=== PATIENT | female | born 1995 | race American Indian/Alaskan Native ===

== ENCOUNTER 2017-10-12 21:58 | Emergency (ER) | payer OTHER ==
[2017-10-12 22:44] VITALS: BP 113/63
[2017-10-12 23:39] LABS: Basophils % (Auto) 0.5 % (0.0-1.8); Eosinophils % (Auto) 0.6 % (0.0-4.3); Hematocrit 33.2 % (30.3-42.9); Hemoglobin 11.4 gm/dl (10.1-14.3); Mean Corpuscular HGB Conc 34 % (30-34); Mean Corpuscular Hemoglobin 31 pg (28-32); Mean Corpuscular Volume 89 fl (79-97); Platelet Count 157 K/mm3 (140-440); Red Blood Count 3.72 M/mm3 (3.65-5.03); Red Cell Distribution Width 13.7 % (13.2-15.2); White Blood Count 4.9 K/mm3 (4.5-11.0)
[2017-10-12 23:43] LABS: Alanine Aminotransferase 17 units/L (7-56); Albumin 3.9 g/dL (3.9-5); Albumin/Globulin Ratio 1.4 %; Alkaline Phosphatase 47 units/L (35-129); BUN/Creatinine Ratio 22; Blood Urea Nitrogen 11 mg/dL (7-17); Carbon Dioxide 23 mmol/L (22-30); Glucose 79 mg/dL (65-100); Lipase 32 units/L (13-60); Total Protein 6.6 g/dL (6.3-8.2)
[2017-10-12 23:44] LABS: Anion Gap 17 mmol/L; Chloride 97.2 mmol/L (98-107); Potassium 3.5 mmol/L (3.6-5.0); Sodium 134 mmol/L (137-145)
[2017-10-13 00:41] LABS: Bilirubin,Urine NEG (Negative); Blood,Urine NEG (Negative); Ketones,Urine NEG (Negative); Leukocyte Esterase,Urine NEG (Negative); Mucus,Urine 3+ /HPF; Nitrite,Urine NEG (Negative); Protein,Urine <15 mg/dL mg/dL (Negative)
== END 2017-10-13 01:40 | disposition left against medical advice (07) ==
LOC: ED 21:58
DX: R10.9 Unspecified abdominal pain (principal); Z53.21 Procedure and treatment not carried out due to patient leaving prior to being seen by health care provider
CPT/HCPCS: 36415; 80053; 81001; 83690; 84702; 84703; 85025

== ENCOUNTER 2017-10-15 15:35 | Emergency (ER) | payer SELFPAY ==
[2017-10-15] MEDS ORDERED: DUONEB *Not for PRN Use IH ONE (20:19)
[2017-10-15] MEDS ORDERED: TYLENOL PO ONE (20:19)
--- NOTE | 2017-10-15 20:20 | Emergency Department Report ---
- General Chief Complaint: Upper Respiratory Infection Stated Complaint: ADITI Time Seen by Provider: 10/15/17 20:08 Source: patient Mode of arrival: Ambulatory Limitations: No Limitations - History of Present Illness Initial Comments: 22-year-old female past medical history none presents to the ED requesting a test. Patient also states she has had runny nose dry cough for the last 3-4 days. Nonproductive cough. Denies fevers or chills. States she has had multiple sick contacts at home. States she has slightly sore throat. Speaking in full sentences awake alert and oriented 3 not in acute distress. Patient states that her last menstrual period was over 1 month ago. Denies abdominal pain vaginal bleeding fevers or chills. States she has not taken any medicine for her symptoms. MD Complaint: cough, rhinorrhea, nasal congestion Onset/Timin -: days(s) Severity: mild Context: sick contacts Associated Symptoms: rhinorrhea, nasal congestion, sore throat, cough - Related Data Previous Rx's Medication Instructions Recorded Last Taken Type ALBUTEROL Inhaler [ProAir HFA 2 puff IH QID PRN #1 inh 10/15/17 Unknown Rx Inhaler] Acetaminophen [Acetaminophen TAB] 500 mg PO Q6HR PRN #30 tablet 10/15/17 Unknown Rx Dextromethorphan/Benzocaine 1 each PO Q4H PRN #1 box 10/15/17 Unknown Rx [Cepacol Sorethroat-Cough Mishel] Nitrofurantoin Monohyd/M-Cryst 100 mg PO BID #14 capsule 10/15/17 Unknown Rx [Macrobid 100 mg Capsule] 21/Iron Fu/Folic Acid 1 each PO QDAY #30 tablet 10/15/17 Unknown Rx [ Complete Caplet] diphenhydrAMINE [Benadryl CAP] 25 mg PO Q8HR PRN #30 capsule 10/15/17 Unknown Rx guaiFENesin [Guaifenesin] 100 mg PO Q6H PRN #1 bottle 10/15/17 Unknown Rx Allergies Allergy/AdvReac Type Severity Reaction Status Date / Time No Known Allergies Allergy Unverified 10/12/17 22:37 ED Review of Systems ROS: Stated complaint: ADITI Other details as noted in HPI Constitutional: malaise. denies: chills, fever Eyes: denies: eye pain, eye discharge, vision change ENT: throat pain. denies: ear pain Respiratory: cough. denies: shortness of breath, wheezing Cardiovascular: denies: chest pain, palpitations Endocrine: no symptoms reported Gastrointestinal: denies: abdominal pain, nausea, diarrhea Genitourinary: denies: urgency, dysuria, discharge Musculoskeletal: denies: back pain, joint swelling, arthralgia Skin: denies: rash, lesions Neurological: denies: headache, weakness, paresthesias Psychiatric: denies: anxiety, depression Hematological/Lymphatic: denies: easy bleeding, easy bruising ED Past Medical Hx - Past Medical History Previous Medical History?: No - Surgical History Past Surgical History?: No - Social History Smoking Status: Never Smoker Substance Use Type: None - Medications Home Medications: Home Medications Medication Instructions Recorded Confirmed Last Taken Type ALBUTEROL Inhaler [ProAir HFA 2 puff IH QID PRN #1 inh 10/15/17 Unknown Rx Inhaler] Acetaminophen [Acetaminophen TAB] 500 mg PO Q6HR PRN #30 tablet 10/15/17 Unknown Rx Dextromethorphan/Benzocaine 1 each PO Q4H PRN #1 box 10/15/17 Unknown Rx [Cepacol Sorethroat-Cough Mishel] Nitrofurantoin Monohyd/M-Cryst 100 mg PO BID #14 capsule 10/15/17 Unknown Rx [Macrobid 100 mg Capsule] 21/Iron Fu/Folic Acid 1 each PO QDAY #30 tablet 10/15/17 Unknown Rx [ Complete Caplet] diphenhydrAMINE [Benadryl CAP] 25 mg PO Q8HR PRN #30 capsule 10/15/17 Unknown Rx guaiFENesin [Guaifenesin] 100 mg PO Q6H PRN #1 bottle 10/15/17 Unknown Rx ED Physical Exam - General Limitations: No Limitations General appearance: alert, in no apparent distress - Head Head exam: Present: atraumatic, normocephalic - Eye Eye exam: Present: normal appearance, PERRL, EOMI - ENT ENT exam: Present: mucous membranes moist - Expanded ENT Exam Expanded Throat exam: Positive: tonsillar erythema (slight erythema but no exudates no peritonsillar abscess uvula is midline) - Neck Neck exam: Present: normal inspection, lymphadenopathy (no significant anterior cervical adenopathy) - Respiratory Respiratory exam: Present: normal lung sounds bilaterally. Absent: respiratory distress - Cardiovascular Cardiovascular Exam: Present: regular rate, normal rhythm. Absent: systolic murmur, diastolic murmur, rubs, gallop - GI/Abdominal GI/Abdominal exam: Present: soft (abdomen soft nontender nondistended four quadrants), normal bowel sounds - Extremities Exam Extremities exam: Present: normal inspection - Back Exam Back exam: Present: normal inspection - Neurological Exam Neurological exam: Present: alert, oriented X3 - Psychiatric Psychiatric exam: Present: normal affect, normal mood - Skin Skin exam: Present: warm, dry, intact, normal color. Absent: rash ED Course Vital Signs 10/15/17 10/15/17 15:44 21:50 Temperature 98.7 F 98.7 F Pulse Rate 75 79 Respiratory 18 18 Rate Blood Pressure 126/83 Blood Pressure 119/69 [Right] O2 Sat by Pulse 99 97 Oximetry ED Medical Decision Making - Medical Decision Making A/P: URI, , asymptomatic bacteriuria 1-we'll treat patient empirically with Macrobid 2-I referred patient to primary care and [facility] as she does not currently have care at this time. Will start patient on vitamins. Patient reports no abdominal pain no vaginal bleeding. Denies any abdominal cramping. 3-will treat patient for URI symptomatically Critical care attestation.: If time is entered above; I have spent that time in minutes in the direct care of this critically ill patient, excluding procedure time. ED Disposition Clinical Impression: Qualifiers: Weeks of gestation: unspecified Qualified Code(s): Z34.90 - Encounter for supervision of normal , unspecified, unspecified trimester Upper respiratory infection Qualifiers: URI type: unspecified URI Qualified Code(s): J06.9 - Acute upper respiratory infection, unspecified Disposition: DC-01 TO HOME OR SELFCARE Is pt being admited?: No Does the pt Need Aspirin: No Condition: Stable Instructions: (ED), Upper Respiratory Infection (ED), Cold Symptoms ( ED) Prescriptions: Acetaminophen [Acetaminophen TAB] 500 mg PO Q6HR PRN #30 tablet PRN Reason: Congestion ALBUTEROL Inhaler [ProAir HFA Inhaler] 2 puff IH QID PRN #1 inh PRN Reason: Shortness Of Breath Dextromethorphan/Benzocaine [Cepacol Sorethroat-Cough Mishel] 1 each PO Q4H PRN #1 box PRN Reason: Sore Throat diphenhydrAMINE [Benadryl CAP] 25 mg PO Q8HR PRN #30 capsule PRN Reason: Congestion guaiFENesin [Guaifenesin] 100 mg PO Q6H PRN #1 bottle PRN Reason: Cough Nitrofurantoin Monohyd/M-Cryst [Macrobid 100 mg Capsule] 100 mg PO BID #14 capsule 21/Iron Fu/Folic Acid [ Complete Caplet] 1 each PO QDAY #30 tablet Referrals: [facility] [Outside] - 3-5 Days [facility] [Outside] - 3-5 Days [facility] [Provider Group] - 3-5 Days [facility] [Provider Group] - 3-5 Days GUILHERME ALVAREZ MD [Staff Physician] - 3-5 Days [facility] [Provider Group] - 3-5 Days Forms: Accompanied Note, Work/School Release Form(ED) Time of Disposition: 21:37
[2017-10-15 21:01] LABS: Bacteria,Urine 1+ /HPF (Negative); Bilirubin,Urine NEG (Negative); Blood,Urine NEG (Negative); Ketones,Urine 80 mg/dL (Negative); Leukocyte Esterase,Urine LG (Negative); Mucus,Urine 1+ /HPF; Nitrite,Urine NEG (Negative); Protein,Urine <15 mg/dL mg/dL (Negative); Urobilinogen,Urine < 2.0 mg/dL (<2.0)
[2017-10-16 00:46] VITALS: BP 119/69
== END 2017-10-15 21:55 | disposition home or self-care (01) ==
LOC: ED 15:35
DX: O99.519 Diseases of the respiratory system complicating pregnancy, unspecified trimester (principal); J06.9 Acute upper respiratory infection, unspecified; Z3A.00 Weeks of gestation of pregnancy not specified
CPT/HCPCS: 81001; 81025; 87400

== ENCOUNTER 2018-04-23 05:28 | Outpatient (CLI) | payer OTHER ==
[2018-04-23 05:44] VITALS: BP 128/70
== END 2018-04-23 07:10 | disposition home or self-care (01) ==
LOC: TRG 05:28
PROVIDERS: ATTEND Obstetrics & Gynecology
DX: O62.9 Abnormality of forces of labor, unspecified (principal); Z3A.37 37 weeks gestation of pregnancy

== ENCOUNTER 2018-05-10 23:54 | Emergency (ER) | payer OTHER ==
[2018-05-11] MEDS ORDERED: NACL 0.9% 1000 ML 1,000 ML IV ONE (00:06)
[2018-05-11 00:52] LABS: Basophils % (Auto) 0.2 % (0.0-1.8); Eosinophils # (Auto) 0.1 K/mm3 (0.0-0.4); Eosinophils % (Auto) 0.6 % (0.0-4.3); Hemoglobin 11.8 gm/dl (10.1-14.3); Lymphocytes % (Auto) 11.1 % (13.4-35.0); Mean Corpuscular HGB Conc 34 % (30-34); Mean Corpuscular Hemoglobin 31 pg (28-32); Mean Corpuscular Volume 91 fl (79-97); Monocytes # (Auto) 0.5 K/mm3 (0.0-0.8); Monocytes % (Auto) 6.3 % (0.0-7.3); Platelet Count 187 K/mm3 (140-440); Red Blood Count 3.83 M/mm3 (3.65-5.03); Red Cell Distribution Width 15.5 % (13.2-15.2)
[2018-05-11 01:07] LABS: Alanine Aminotransferase 27 units/L (7-56); Albumin 3.3 g/dL (3.9-5); BUN/Creatinine Ratio 17; Blood Urea Nitrogen 10 mg/dL (7-17); Calcium 8.5 mg/dL (8.4-10.2); Hemolysis Index 3; Lipase 25 units/L (13-60)
[2018-05-11] MEDS ORDERED: VANCOMYCIN 1,500 MG in NACL 0.9% 500 ML 500 ML IV ONE (01:29)
[2018-05-11] MEDS ORDERED: NACL 0.9% 1000 ML IV ONE (01:29)
[2018-05-11] MEDS ORDERED: DILAUDID IV PRN (01:29)
[2018-05-11] MEDS ORDERED: TYLENOL PO PRN (01:29)
--- NOTE | 2018-05-11 01:40 | Emergency Department Report ---
ED Abdominal Pain HPI - General Chief Complaint: Abdominal Pain Stated Complaint: ABDOMINAL PAIN,SOB Time Seen by Provider: 05/11/18 01:16 Source: patient Mode of arrival: Ambulatory Limitations: No Limitations - History of Present Illness Initial Comments: 23-year-old woman, status post section at term 3 days ago, uncomplicated, discharged 10-12 hours ago, returns now with increasing abdominal pain, as well as fever and some chills. She had some unknown prescriptions, which she had not been able to fill yet today, and that would include pain medicine, but she has not had any since her discharge. She is not aware of any complications from her section, and on increasing symptoms , [facility] and was referred here for further care. Past medical health is generally good, section was uncomplicated and at term, she's not had any drainage from the incision site, and she has had no secondary symptoms, although she's had some nasal congestion and swelling in the left side of her nostril. She's had no cough or congestion, no difficulty with urination, no nausea or vomiting, no diarrhea. Onset/Timin -: Gradual, days(s) Location: diffuse Radiation: none Migration to: no migration Severity: severe Severity scale (0 -10): 10 Quality: aching Consistency: constant Improves With: nothing Worsens With: movement Associated Symptoms: fever, chills - Related Data Home Medications Medication Instructions Recorded Confirmed Last Taken Ferrous Sulfate [Iron] 1 tab PO TID 04/23/18 05/07/18 05/06/18 15:00 Vit,Calc76/Iron/Folic 1 tab PO DAILY 05/07/18 05/07/18 05/06/18 11:00 [Pnv 29-1 Tablet] Previous Rx's Medication Instructions Recorded Last Taken Type Ibuprofen [Motrin 800 MG tab] 800 mg PO TID PRN #30 tablet 05/09/18 Unknown Rx oxyCODONE /ACETAMINOPHEN [Percocet 1 tab PO Q4HR PRN #30 tablet 05/09/18 Unknown Rx 5/325 mg] oxyCODONE /ACETAMINOPHEN [Percocet 2 tab PO Q4H PRN #30 tablet 05/09/18 Unknown Rx 5/325 mg] oxyCODONE /ACETAMINOPHEN [Percocet 2 tab PO Q4HR PRN #30 tab 05/09/18 Unknown Rx 5/325] Amoxicillin/Potassium Clav 1 each PO TID #21 tablet 05/11/18 Unknown Rx [Augmentin 875-125 Tablet] Ondansetron [Zofran ODT TAB] 8 mg PO Q8HR PRN #10 tab.rapdis 05/11/18 Unknown Rx oxyCODONE /ACETAMINOPHEN [Percocet 1 - 2 tab PO Q4HR PRN #30 tab 05/11/18 Unknown Rx 5/325 mg] Allergies Allergy/AdvReac Type Severity Reaction Status Date / Time No Known Allergies Allergy Verified 05/07/18 05:10 ED Review of Systems ROS: Stated complaint: ABDOMINAL PAIN,SOB Other details as noted in HPI Comment: All other systems reviewed and negative Constitutional: chills, diaphoresis, fever, malaise. denies: weakness Eyes: denies: eye pain, eye discharge, vision change ENT: other (left-sided nasal drainage,). denies: throat pain Respiratory: no symptoms reported. denies: cough, shortness of breath Cardiovascular: denies: chest pain, dyspnea on exertion, syncope Endocrine: no symptoms reported Gastrointestinal: abdominal pain. denies: vomiting, diarrhea, constipation Genitourinary: denies: dysuria, frequency, hematuria Skin: rash (left nostril) Neurological: denies: headache, weakness, paresthesias Psychiatric: denies: anxiety, depression Hematological/Lymphatic: denies: as per HPI, easy bleeding ED Past Medical Hx - Past Medical History Previous Medical History?: Yes Hx Hypertension: No Hx Congestive Heart Failure: No Hx Diabetes: No Hx Deep Vein Thrombosis: No Hx Renal Disease: No Hx Sickle Cell Disease: No Hx Seizures: No Hx Asthma: No Hx COPD: No Hx HIV: No Additional medical history: "liver probs" - Surgical History Past Surgical History?: Yes Additional Surgical History: - Social History Smoking Status: Never Smoker Substance Use Type: None - Medications Home Medications: Home Medications Medication Instructions Recorded Confirmed Last Taken Type Ferrous Sulfate [Iron] 1 tab PO TID 04/23/18 05/07/18 05/06/18 15:00 History Vit,Calc76/Iron/Folic 1 tab PO DAILY 05/07/18 05/07/18 05/06/18 11:00 History [Pnv 29-1 Tablet] Ibuprofen [Motrin 800 MG tab] 800 mg PO TID PRN #30 tablet 05/09/18 Unknown Rx oxyCODONE /ACETAMINOPHEN [Percocet 1 tab PO Q4HR PRN #30 tablet 05/09/18 Unknown Rx 5/325 mg] oxyCODONE /ACETAMINOPHEN [Percocet 2 tab PO Q4H PRN #30 tablet 05/09/18 Unknown Rx 5/325 mg] oxyCODONE /ACETAMINOPHEN [Percocet 2 tab PO Q4HR PRN #30 tab 05/09/18 Unknown Rx 5/325] Amoxicillin/Potassium Clav 1 each PO TID #21 tablet 05/11/18 Unknown Rx [Augmentin 875-125 Tablet] Ondansetron [Zofran ODT TAB] 8 mg PO Q8HR PRN #10 tab.rapdis 05/11/18 Unknown Rx oxyCODONE /ACETAMINOPHEN [Percocet 1 - 2 tab PO Q4HR PRN #30 tab 05/11/18 Unknown Rx 5/325 mg] ED Physical Exam - General Limitations: No Limitations General appearance: alert, in distress (moderate discomfort from abdominal pain , vital signs are stable) - Head Head exam: Present: atraumatic, normocephalic - Eye Eye exam: Present: PERRL, EOMI - ENT ENT exam: Present: normal exam, mucous membranes moist. Absent: normal orophraynx (impetiginous eruption around nostrils, particularly on left, no active drainage, crusted moderately) - Neck Neck exam: Present: normal inspection, full ROM. Absent: tenderness, meningismus - Respiratory Respiratory exam: Present: normal lung sounds bilaterally. Absent: respiratory distress, wheezes, rales, rhonchi, chest wall tenderness - Cardiovascular Cardiovascular Exam: Present: regular rate. Absent: normal heart sounds, systolic murmur - GI/Abdominal GI/Abdominal exam: Present: tenderness (diffusely, all quadrants), guarding ( mild to moderate guarding in all quadrants), rebound (1+ rebound or quadrants), normal bowel sounds. Absent: rigid, mass - Rectal Rectal exam: Present: deferred - Extremities Exam Extremities exam: Present: normal inspection, full ROM, tenderness - Neurological Exam Neurological exam: Present: alert, oriented X3, CN II-XII intact. Absent: motor sensory deficit - Psychiatric Psychiatric exam: Present: normal affect, normal mood - Skin Skin exam: Present: warm, dry, rash (impetiginous eruption, around nostrils, no further extension beyond) ED Course Vital Signs 05/10/18 05/11/18 05/11/18 23:54 00:02 01:08 Temperature 37.6 C 37.4 C Pulse Rate 146 H 139 H 83 Respiratory 18 22 16 Rate Blood Pressure 143/101 143/101 Blood Pressure 125/76 [Right] O2 Sat by Pulse 99 98 98 Oximetry 05/11/18 05/11/18 05/11/18 01:30 01:45 02:00 Temperature Pulse Rate 84 69 78 Respiratory 22 19 17 Rate Blood Pressure 122/84 114/74 125/86 Blood Pressure [Right] O2 Sat by Pulse 97 98 Oximetry 05/11/18 05/11/18 05/11/18 02:30 02:33 02:45 Temperature Pulse Rate 80 63 Respiratory 19 16 16 Rate Blood Pressure 123/86 121/85 Blood Pressure [Right] O2 Sat by Pulse 99 99 Oximetry 05/11/18 05/11/18 03:03 05:37 Temperature 36.5 C Pulse Rate 63 Respiratory 16 16 Rate Blood Pressure Blood Pressure 128/79 [Right] O2 Sat by Pulse 99 Oximetry - Reevaluation(s) Reevaluation #1: 05/11/18 05:52 Patient treated for fever, as well as for pain, resting fairly comfortably. Reevaluation #2: 05/11/18 05:52 Vital signs stable on recheck at 545 hours, she is afebrile, temperature is 36.6 C. Labs have been reviewed, they are stable, she shows no signs of sepsis, urine is negative, pelvic ultrasound is negative, as is CT scan of abdomen and pelvis. ED Medical Decision Making - Lab Data Result diagrams: 05/11/18 00:17 05/11/18 00:17 - Radiology Data Radiology results: report reviewed Pelvic ultrasound was negative, with typical changes with enlarged uterus, but no fluid, no abscess formation, and no pelvic free fluid. CT scan of the abdomen was also negative, with no acute intra-abdominal process , no findings suggestive of free fluid, abscess, or other intra-abdominal pathology other than the typical postoperative uterine changes. - Medical Decision Making This patient is 3 days post section, came in with significant abdominal pain, and mild fever, which was worrisome for developing intra- abdominal infection, but evaluation is relatively benign, and patient was treated for fever, and antibody for possible infection, and medication for pain , patient has been resting fairly comfortably since that time, with abdomen was soft for repeat examination, with negative pelvic ultrasound, and negative CT scan of the abdomen, showing no signs of abscess, infection, cellulitis, or intra-abdominal fluid collection . I would suspect the patient's fever is probably secondary to atelectasis and prolonged recumbent position, but she also could have an impetigo, but there is no clear-cut findings to suggest intra -abdominal infection, and the incision is also intact. She is much better with pain relief, and abdomen is much softer on pain relief, and I'm able to palpate deeper, there is no distinct rebound. 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 - Differential Diagnosis incisional infection, incisional abscess, endometritis, intra-abdominal abs Critical Care Time: No Critical care attestation.: If time is entered above; I have spent that time in minutes in the direct care of this critically ill patient, excluding procedure time. ED Disposition Clinical Impression: Postoperative abdominal pain, History of section Disposition: - TO HOME OR SELFCARE Is pt being admited?: No Does the pt Need Aspirin: No Condition: Stable Instructions: Abdominal Pain (ED) Additional Instructions: You're stable to go home, as laboratory evaluation is essentially normal, and ultrasound and CT scans show no significant intra-abdominal findings, and no definite infections. Also, they're significantly improved with treatment for pain, and we are discharging her home with antibiotics for nasal infection, which we believe is impetigo, as well as pain medicine for your recuperation. Your doctor, Dr. Tinajero, wants to see you in the office today, and requests that you contact the office staff at opening of the office at 9:00 this morning, to make arrangements to be seen later today. We have given you copies of the lab evaluations results, as well as the radiology imaging results, be sure to bring these with you for review by your doctor. Prescriptions: Amoxicillin/Potassium Clav [Augmentin 875-125 Tablet] 1 each PO TID #21 tablet Ondansetron [Zofran ODT TAB] 8 mg PO Q8HR PRN #10 tab.rapdis PRN Reason: Nausea oxyCODONE /ACETAMINOPHEN [Percocet 5/325 mg] 1 - 2 tab PO Q4HR PRN #30 tab PRN Reason: Pain , Severe (7-10) Time of Disposition: 05:58
[2018-05-11] MEDS ORDERED: ZOSYN/NS 4.5GM/100ML 4.5 GM/100 ML VIAL IV SCH (02:00)
--- NOTE | 2018-05-11 02:10 | Ultrasound Report ---
FINAL REPORT EXAM: US PELVIC LIMITED HISTORY: pain and fever, post 3 days TECHNIQUE: Transabdominal imaging was obtained of the pelvis with Doppler interrogation of the uterus. FINDINGS: The uterus is anteverted and enlarged compatible with recent status. It measures 15.6 cm x 7.8 cm x 10.6 cm. There is an echogenic artifact in the lower uterine segment anteriorly. The endometrial thickness 15.1 mm and is homogeneous in thickness. Free fluid is not seen. The ovaries are not identified. IMPRESSION: Enlarged uterus as described with homogeneous endometrium measuring 15.1 mm in thickness. No suspicious fluid collections the pelvis that would suggest an abscess. Ovaries not identified. No evidence of free fluid.
[2018-05-11 02:50] LABS: Bilirubin,Urine NEG (Negative); Blood,Urine SM (Negative); Color,Urine Yellow (Yellow); Mucus,Urine FEW /HPF; Protein,Urine <15 mg/dL mg/dL (Negative); Urobilinogen,Urine < 2.0 mg/dL (<2.0)
--- NOTE | 2018-05-11 05:34 | Cat Scan Report ---
FINAL REPORT EXAM: CT ABDOMEN PELVIS W CON HISTORY: abd pain, fever, recent C section TECHNIQUE: Routine axial imaging was obtained of the abdomen and pelvis following the intravenous injection of 100 cc of Omnipaque 300. Delayed imaging was obtained through the kidneys ureters and bladder. Sagittal and coronal reconstructions were reviewed. FINDINGS: The lung bases are clear. Pleural fluid is not seen. The liver, gallbladder, pancreas, spleen, and adrenal glands appear normal. The kidneys enhance normally. There is no evidence of hydronephrosis. The abdominal aorta and vascular structures enhance normally. The bowel loops are normal in caliber. There is a large amount retained feces in the colon. There is no evidence of free fluid or adenopathy. There is a small umbilical hernia with bulging bowel loops. In the pelvis there is enlarged uterus compatible with status. There are no suspicious fluid collections or inflammatory changes. The bladder reveals generalized wall thickening. Underlying cystitis cannot entirely be excluded. The surrounding bones and soft tissues reveal foci of subcutaneous air along the lower anterior pelvic wall with edematous changes which are postoperative in origin. There is no evidence of seroma. The skeletal structures are well-maintained. IMPRESSION: Enlarged uterus. No evidence of abscess within the lower anterior abdominal wall or pelvis. Postsurgical changes along the anterior abdominal wall. Large amount retained feces noted in the colon. Umbilical hernia with bulging bowel loops. No evidence of bowel obstruction. Appendix not identified.
--- NOTE | 2018-05-11 05:50 | Cat Scan Report ---
FINAL REPORT EXAM: CT SINUSES WO CON HISTORY: nasal congestion, left nasal lesions; , TECHNIQUE: Routine axial imaging was obtained of the sinuses without IV contrast with sagittal and coronal reconstructions. FINDINGS: There deviation of the nasal septum right of midline. The sinuses are clear. There are bilateral ethmoidal bulla. The turbinates appear normal. The orbital rims and floors appear intact. The intraorbital structures are well-maintained IMPRESSION: Deviation of the nasal septum right of midline. Bilateral ethmoidal bulla. No evidence of polyps or active sinusitis otherwise
[2018-05-11 06:12] VITALS: BP 124/90
== END 2018-05-11 07:03 | disposition home or self-care (01) ==
LOC: ED 23:54
DX: O90.89 Other complications of the puerperium, not elsewhere classified (principal); R10.84 Generalized abdominal pain; R50.9 Fever, unspecified
CPT/HCPCS: 36415; 70486; 74177; 76857; 80053; 81001; 82140; 83690; 85025; 87040; 87086; 93005; 93010; 96365; 96366; 96367; 96375; 99284; J1170; J2543; J3370; J7030; J7040; Q9967; 76856

== ENCOUNTER 2019-10-11 00:53 | Emergency (ER) | payer MEDICARE, OTHER ==
[2019-10-11 02:55] LABS: HCG Qualitative,Urine Negative (Negative)
[2019-10-11 02:57] LABS: Bacteria,Urine 1+ /HPF (Negative); Bilirubin,Urine NEG (Negative); Blood,Urine NEG (Negative); Color,Urine Yellow (Yellow); Mucus,Urine 1+ /HPF; Protein,Urine <15 mg/dL mg/dL (Negative); Urobilinogen,Urine < 2.0 mg/dL (<2.0)
[2019-10-11] MEDS ORDERED: IBUPROFEN 600 MG TAB PO ONE (04:13)
[2019-10-11] MEDS ORDERED: cephALEXin 500 MG CAP PO ONE (04:13)
[2019-10-11] MEDS ORDERED: ONDANSETRON 4 MG ODT TAB PO ONE (04:44)
[2019-10-11] MEDS ORDERED: AZITHROMYCIN 250 MG TAB PO ONE (04:44)
--- NOTE | 2019-10-11 06:38 | Emergency Department Report ---
ED Female HPI - General Chief complaint: Urogenital-Female Stated complaint: VAGINAL BURNING AND ITCHING Source: patient Mode of arrival: Ambulatory Limitations: No Limitations - History of Present Illness Initial comments: Patient is a A0 24-year-old -Citizen Of [place] female who presented to the ED with acute onset persistent dysuria, vaginal discharge, urinary frequency and urgency, vaginal pain and irritation for the last 3 days. Patient denies vaginal bleeding, dyspareunia, abdominal pain, fever, chills, nausea, vomiting, low back pain, dizziness, chest pain or shortness of breath. MD Complaint: vaginal discharge, dysuria, other (vaginal pain) -: Sudden, days(s) (3) Location: perineum, other (vagina) Radiation: non-radiating Severity: moderate Severity scale (0 -10): 4 Quality: sharp, burning Consistency: constant Improves with: none Worsens with: urination, intercourse Are you Now?: No Last Menstrual Period: 09/28/19 EDC: 07/04/20 Associated Symptoms: denies other symptoms, vaginal discharge, dysuria. denies: vaginal bleeding, abdominal pain, nausea/vomiting, fever/chills, headaches, hematuria, rash, seizure, shortness of breath, syncope, weakness - Related Data Sexually active: Yes : 1 Para: 1 A: 0 Home Medications Medication Instructions Recorded Confirmed Last Taken Ferrous Sulfate [Iron 325 MG] 1 tab PO TID 04/23/18 05/07/18 05/06/18 15:00 Vit,Calc76/Iron/Folic 1 tab PO DAILY 05/07/18 05/07/18 05/06/18 11:00 [Pnv 29-1 Tablet] Previous Rx's Medication Instructions Recorded Last Taken Type Ibuprofen [Motrin 800 MG tab] 800 mg PO TID PRN #30 tablet 05/09/18 Unknown Rx oxyCODONE /ACETAMINOPHEN [Percocet 1 tab PO Q4HR PRN #30 tablet 05/09/18 Unknown Rx 5/325 mg] oxyCODONE /ACETAMINOPHEN [Percocet 2 tab PO Q4H PRN #30 tablet 05/09/18 Unknown Rx 5/325 mg] oxyCODONE /ACETAMINOPHEN [Percocet 2 tab PO Q4HR PRN #30 tab 05/09/18 Unknown Rx 5/325] Amoxicillin/Potassium Clav 1 each PO TID #21 tablet 05/11/18 Unknown Rx [Augmentin 875-125 Tablet] Ondansetron [Zofran ODT TAB] 8 mg PO Q8HR PRN #10 tab.rapdis 05/11/18 Unknown Rx oxyCODONE /ACETAMINOPHEN [Percocet 1 - 2 tab PO Q4HR PRN #30 tab 05/11/18 Unknown Rx 5/325 mg] Fluconazole [Diflucan TAB] 150 mg PO ONCE #2 tablet 10/11/19 Unknown Rx Ibuprofen [Motrin] 600 mg PO Q8H PRN #20 tablet 10/11/19 Unknown Rx Ondansetron [Zofran Odt] 4 mg PO Q6HR PRN #15 tab.rapdis 10/11/19 Unknown Rx Sulfamethoxazole/Trimethoprim 1 each PO Q12H #20 tablet 10/11/19 Unknown Rx [Bactrim DS TAB] metroNIDAZOLE [Flagyl] 500 mg PO Q12HR #14 tab 10/11/19 Unknown Rx Allergies Allergy/AdvReac Type Severity Reaction Status Date / Time No Known Allergies Allergy Verified 10/11/19 02:20 ED Review of Systems ROS: Stated complaint: VAGINAL BURNING AND ITCHING Other details as noted in HPI Constitutional: denies: chills, fever Eyes: denies: eye pain, eye discharge, vision change ENT: denies: ear pain, throat pain Respiratory: denies: cough, shortness of breath, wheezing Cardiovascular: denies: chest pain, palpitations Endocrine: no symptoms reported Gastrointestinal: denies: abdominal pain, nausea, diarrhea Genitourinary: urgency, dysuria, frequency, discharge, other (vaginal pain) Musculoskeletal: denies: back pain, joint swelling, arthralgia Skin: denies: rash, lesions Neurological: denies: headache, weakness, paresthesias Psychiatric: denies: anxiety, depression Hematological/Lymphatic: denies: easy bleeding, easy bruising ED Past Medical Hx - Past Medical History Hx Hypertension: No Hx Congestive Heart Failure: No Hx Diabetes: No Hx Deep Vein Thrombosis: No Hx Renal Disease: No Hx Sickle Cell Disease: No Hx Seizures: No Hx Asthma: No Hx COPD: No Hx HIV: No Additional medical history: "liver probs" - Surgical History Additional Surgical History: - Social History Smoking Status: Never Smoker Substance Use Type: None - Medications Home Medications: Home Medications Medication Instructions Recorded Confirmed Last Taken Type Ferrous Sulfate [Iron 325 MG] 1 tab PO TID 04/23/18 05/07/18 05/06/18 15:00 History Vit,Calc76/Iron/Folic 1 tab PO DAILY 05/07/18 05/07/18 05/06/18 11:00 History [Pnv 29-1 Tablet] Ibuprofen [Motrin 800 MG tab] 800 mg PO TID PRN #30 tablet 05/09/18 Unknown Rx oxyCODONE /ACETAMINOPHEN [Percocet 1 tab PO Q4HR PRN #30 tablet 05/09/18 Unknown Rx 5/325 mg] oxyCODONE /ACETAMINOPHEN [Percocet 2 tab PO Q4H PRN #30 tablet 05/09/18 Unknown Rx 5/325 mg] oxyCODONE /ACETAMINOPHEN [Percocet 2 tab PO Q4HR PRN #30 tab 05/09/18 Unknown Rx 5/325] Amoxicillin/Potassium Clav 1 each PO TID #21 tablet 05/11/18 Unknown Rx [Augmentin 875-125 Tablet] Ondansetron [Zofran ODT TAB] 8 mg PO Q8HR PRN #10 tab.rapdis 05/11/18 Unknown Rx oxyCODONE /ACETAMINOPHEN [Percocet 1 - 2 tab PO Q4HR PRN #30 tab 05/11/18 Unknown Rx 5/325 mg] Fluconazole [Diflucan TAB] 150 mg PO ONCE #2 tablet 10/11/19 Unknown Rx Ibuprofen [Motrin] 600 mg PO Q8H PRN #20 tablet 10/11/19 Unknown Rx Ondansetron [Zofran Odt] 4 mg PO Q6HR PRN #15 tab.rapdis 10/11/19 Unknown Rx Sulfamethoxazole/Trimethoprim 1 each PO Q12H #20 tablet 10/11/19 Unknown Rx [Bactrim DS TAB] metroNIDAZOLE [Flagyl] 500 mg PO Q12HR #14 tab 10/11/19 Unknown Rx ED Physical Exam - General Limitations: No Limitations General appearance: alert, in no apparent distress - Head Head exam: Present: atraumatic, normocephalic, normal inspection - Eye Eye exam: Present: normal appearance, PERRL, EOMI Pupils: Present: normal accommodation - ENT ENT exam: Present: normal exam, normal orophraynx, mucous membranes moist, TM's normal bilaterally - Neck Neck exam: Present: normal inspection, full ROM - Respiratory Respiratory exam: Present: normal lung sounds bilaterally. Absent: respiratory distress, wheezes, rhonchi, chest wall tenderness, decreased breath sounds - Cardiovascular Cardiovascular Exam: Present: regular rate, normal rhythm, normal heart sounds. Absent: systolic murmur, diastolic murmur, rubs, gallop - GI/Abdominal GI/Abdominal exam: Present: soft, normal bowel sounds. Absent: tenderness, hyperactive bowel sounds, hypoactive bowel sounds, organomegaly - External exam: Present: erythema Speculum exam: Present: erythema, vaginal discharge, cervical discharge Bi-manual exam: Present: normal bi-manual exam, other (female RN Johny Susan, present as a line pilot) - Extremities Exam Extremities exam: Present: normal inspection, full ROM, normal capillary refill - Back Exam Back exam: Present: normal inspection, full ROM. Absent: muscle spasm - Neurological Exam Neurological exam: Present: alert, oriented X3, CN II-XII intact, normal gait, reflexes normal - Psychiatric Psychiatric exam: Present: normal affect, normal mood - Skin Skin exam: Present: warm, dry, intact, normal color. Absent: rash ED Course Vital Signs 10/11/19 10/11/19 01:15 04:20 Temperature 98.8 F Pulse Rate 90 Respiratory 18 16 Rate Blood Pressure 110/71 O2 Sat by Pulse 98 Oximetry ED Medical Decision Making - Medical Decision Making This is a 24-year-old female who presented to the ED with vaginal pain, vaginal discharge, dysuria, urinary frequency and urgency for 3 days. In the ED, patient is alert and oriented 3 and is not in distress. Normal vital signs. Urinalysis shows significant urinary tract infection. Wet prep shows significant than early vaginitis consistent with bacterial vaginosis. Patient was tearful pain and for UTI in the ED initially. Patient was discharged home on medications and advised to follow-up with Primary care physician in 7-10 days for reevaluation. Patient was is advised return to the ED immediately if symptoms get worse. - Differential Diagnosis UTI; STD; Bacterial vaginosis; Trichomonas; Radha vaginitis Critical care attestation.: If time is entered above; I have spent that time in minutes in the direct care of this critically ill patient, excluding procedure time. ED Disposition Clinical Impression: Acute urinary tract infection, Bacterial vaginosis, Candidal vaginitis Disposition: - TO HOME OR SELFCARE Is pt being admited?: No Does the pt Need Aspirin: No Condition: Stable Instructions: Bacterial Vaginosis (ED), Urinary Tract Infection in Women (ED), Vulvovaginal Candidiasis (ED) Additional Instructions: Take medications with food, drink plenty of fluids and follow-up with your primary care physician in 7-10 days for reevaluation. Return to the ED immediately if symptoms get worse. Prescriptions: Sulfamethoxazole/Trimethoprim [Bactrim DS TAB] 1 each PO Q12H #20 tablet Fluconazole [Diflucan TAB] 150 mg PO ONCE #2 tablet metroNIDAZOLE [Flagyl] 500 mg PO Q12HR #14 tab Ibuprofen [Motrin] 600 mg PO Q8H PRN #20 tablet PRN Reason: Pain Ondansetron [Zofran Odt] 4 mg PO Q6HR PRN #15 tab.rapdis PRN Reason: Nausea Referrals: PRIMARY CARE,MD [Primary Care Provider] - 3-5 Days Forms: STI Treatment and Prevention, Work/School Release Form(ED) Time of Disposition: 06:36 Print Language: OCCITAN
[2019-10-11 07:35] VITALS: BP 111/73
== END 2019-10-11 07:09 | disposition home or self-care (01) ==
LOC: ED 00:53
DX: N39.0 Urinary tract infection, site not specified (principal); B37.3 Candidiasis of vulva and vagina; Z79.899 Other long term (current) drug therapy
CPT/HCPCS: 81001; 81025; 87086; 87210; 87591; Q0162

== ENCOUNTER 2020-07-13 17:02 | Outpatient (CLI) | payer OTHER, MEDICAID ==
[2020-07-13 18:51] VITALS: BP 101/60
[2020-07-13] MEDS ORDERED: LACTATED RINGERS 1,000 ML IV SCH (19:00)
[2020-07-13 19:47] LABS: Bacteria,Urine 1+ /HPF (Negative); Bilirubin,Urine NEG (Negative); Blood,Urine NEG (Negative); Color,Urine Yellow (Yellow); Mucus,Urine 2+ /HPF; Protein,Urine <15 mg/dL mg/dL (Negative); Urobilinogen,Urine < 2.0 mg/dL (<2.0)
[2020-07-13] MEDS ORDERED: ACETAMINOPHEN 500 MG TAB PO ONE (22:15)
--- NOTE | 2020-07-13 22:31 | Ultrasound Report ---
ULTRASOUND OBSTETRIC LIMITED ULTRASOUND BIOPHYSICAL PROFILE INDICATION / CLINICAL INFORMATION: labor. COMPARISON: None available. FINDINGS: BREATHING MOVEMENT = 2 GROSS BODY MOVEMENT = 2 TONE = 2 QUALITATIVE AMNIOTIC FLUID VOLUME = 2 TOTAL BIOPHYSICAL SCORE = 8/8 AMNIOTIC FLUID INDEX (cm) = a 0.0 PRESENTATION: Cephalic. HEART RATE (beats per minute): 141 ADDITIONAL FINDINGS: The placenta is located anteriorly and appears unremarkable. IMPRESSION: 1. Biophysical Score = 8/8 Signer Name: Joe Figueroa MD Signed: 07/13/2020 10:27 PM Workstation Name: [id number]
== END 2020-07-13 23:57 | disposition home or self-care (01) ==
LOC: TRG 17:02 → APU 17:04 → TRG 23:57
PROVIDERS: ATTEND Obstetrics & Gynecology
DX: O26.893 Other specified pregnancy related conditions, third trimester (principal); R10.9 Unspecified abdominal pain; O60.03 Preterm labor without delivery, third trimester; O99.013 Anemia complicating pregnancy, third trimester; D64.9 Anemia, unspecified; Z3A.28 28 weeks gestation of pregnancy
CPT/HCPCS: 59025; 76815; 76819; 81001; 87086; 96360; 96361; J7120

== ENCOUNTER 2020-08-29 01:42 | Outpatient (CLI) | payer OTHER, MEDICAID ==
[2020-08-29 02:16] VITALS: BP 106/70
[2020-08-29] MEDS ORDERED: LACTATED RINGERS 1,000 ML IV ONE ×2 (02:52→04:50)
[2020-08-29 05:29] LABS: Bilirubin,Urine NEG (Negative); Blood,Urine NEG (Negative); Color,Urine Yellow (Yellow); Mucus,Urine FEW /HPF; Protein,Urine <15 mg/dL mg/dL (Negative); RBC,Urine < 1.0 /HPF (0.0-6.0); Urobilinogen,Urine < 2.0 mg/dL (<2.0)
== END 2020-08-29 06:30 | disposition home or self-care (01) ==
LOC: TRG 01:42 → APU 01:44 → TRG 06:30
PROVIDERS: ATTEND Obstetrics & Gynecology
DX: O26.893 Other specified pregnancy related conditions, third trimester (principal); R10.30 Lower abdominal pain, unspecified; O47.03 False labor before 37 completed weeks of gestation, third trimester; Z3A.35 35 weeks gestation of pregnancy
CPT/HCPCS: 59025; 81001; 96360; 96361; J7120

== ENCOUNTER 2020-09-19 16:34 | Outpatient (CLI) | payer OTHER, MEDICAID ==
[2020-09-19 17:26] VITALS: BP 118/74
== END 2020-09-19 19:45 | disposition home or self-care (01) ==
LOC: APU 16:34 → TRG 16:34
PROVIDERS: ATTEND Obstetrics & Gynecology
DX: O47.1 False labor at or after 37 completed weeks of gestation (principal); Z3A.38 38 weeks gestation of pregnancy
CPT/HCPCS: 59025

== ENCOUNTER 2020-09-19 21:53 | Inpatient (IN) | payer OTHER, MEDICAID ==
[2020-09-19] MEDS ORDERED: fentaNYL 100 MCG/2 ML INJ IV PRN (22:41)
[2020-09-19] MEDS ORDERED: LIDOCAINE (2%) 20 MG/1 ML VIAL 20 ML MDV INFILTRATI ONE (22:41)
[2020-09-19] MEDS ORDERED: TERBUTALINE 1 MG/1 ML INJ SUB-Q PRN (22:41)
[2020-09-19] MEDS ORDERED: ePHEDrine SULFATE 50 MG/1 ML INJ IV PRN (22:41)
[2020-09-19] MEDS ORDERED: MINERAL OIL 30 ML ORAL LIQD PO PRN (22:41)
[2020-09-19] MEDS ORDERED: ONDANSETRON 4 MG/2 ML INJ IV PRN (22:41)
[2020-09-19] MEDS ORDERED: AMPICILLIN/NS 2 GM/100 ML 2 GM/100 ML BAG IV ONE (22:41)
[2020-09-19] MEDS ORDERED: OXYTOCIN DRIP 30 UNITS/500 ML BAG IV SCH (23:00)
[2020-09-19] MEDS: LACTATED RINGERS 1,000 ML IV SCH (23:10)
[2020-09-20 00:07] LABS: Hematocrit 33.8 % (30.3-42.9); Hemoglobin 11.4 gm/dl (10.1-14.3); Mean Corpuscular HGB Conc 34 % (30-34); Mean Corpuscular Volume 88 fl (79-97); Platelet Count 134 K/mm3 (140-440); Red Blood Count 3.83 M/mm3 (3.65-5.03); Red Cell Distribution Width 15.9 % (13.2-15.2)
--- NOTE | 2020-09-20 00:44 | History and Physical Report ---
History of Present Illness Date of examination: 09/20/20 Date of admission: 09/19/20 22:42 Chief complaint: contractions History of present illness: 25y/o @ 38+3 weeks presents in active labor with cervical dilation of 5cm intact. The patient has a history of prior delivery and has elected to attempt a trial of labor. She denies leakage of fluid. records are not available for review Past History Past Medical History: no pertinent history Past Surgical History: section Social history: - Obstetrical History Expected Date of Delivery: 10/01/20 Actual Gestation: 38 Week(s) 3 Day(s) : 2 Para: 1 Hx # Term Pregnancies: 1 Number of Pregnancies: 0 Spontaneous Abortions: 0 Induced : 0 Number of Living Children: 1 Medications and Allergies Allergies Allergy/AdvReac Type Severity Reaction Status Date / Time No Known Allergies Allergy Verified 10/11/19 02:20 Home Medications Medication Instructions Recorded Confirmed Last Taken Type No Known Home Medications [No 09/19/20 09/19/20 Unknown History Reported Home Medications] Active Meds: Active Medications Ephedrine Sulfate (Ephedrine Sulfate) 10 mg IV Q2M PRN PRN Reason: Hypotension Fentanyl (Sublimaze) 100 mcg IV Q2H PRN PRN Reason: Pain,Severe (7-10) LABOR PAIN Last Admin: 09/19/20 23:54 Dose: 100 mcg Documented by: Lactated Ringer's (Lactated Ringers) 1,000 mls @ 125 mls/hr IV DIRECT BETTE Last Admin: 09/19/20 23:10 Dose: 125 mls/hr Documented by: Oxytocin/Sodium Chloride (Pitocin/Ns 30 Unit/500ml) 30 units in 500 mls @ 40 mls/hr IV TITR BETTE; Protocol Mineral Oil (Mineral Oil) 30 ml PO QHS PRN PRN Reason: Constipation Ondansetron HCl (Zofran) 4 mg IV Q8H PRN PRN Reason: Nausea And Vomiting Terbutaline Sulfate (Brethine) 0.25 mg SUB-Q ONCE PRN PRN Reason: Hyperstimulation/Hypertonicity Review of Systems All systems: negative Genitourinary: pelvic pain, contractions - Vital Signs Vital signs: Vital Signs Temp Pulse Resp BP Pulse Ox 98 F 94 H 20 135/90 99 09/19/20 21:58 09/19/20 21:58 09/19/20 21:58 09/19/20 21:58 09/19/20 21:58 Temp Pulse Resp BP Pulse Ox 98.1 F 107 H 18 123/84 99 09/19/20 23:23 09/20/20 00:37 09/19/20 23:23 09/20/20 00:27 09/20/20 00:37 - Physical Exam Breasts: Positive: deferred Cardiovascular: Regular rate Lungs: Positive: Clear to auscultation Abdomen: Positive: normal appearance Results Result Diagrams: 09/19/20 23:10 Abnormal lab results 09/19/20 Range/Units 23:10 RDW 15.9 H (13.2-15.2) % Plt Count 134 L (140-440) K/mm3 All other labs normal. Assessment and Plan - Patient Problems (1) Encounter for trial of labor Current Visit: Yes Status: Acute Plan to address problem: admit for trial of labor will initiate IV antibiotics (2) Previous delivery affecting Current Visit: Yes Status: Acute
[2020-09-20] MEDS: LACTATED RINGERS 1,000 ML IV SCH (00:46)
[2020-09-20] MEDS ORDERED: LIDOCAINE (2%) 20 MG/1 ML VIAL 20 ML MDV INFILTRATI ONE (02:20)
[2020-09-20] MEDS ORDERED: PROMETHAZINE 25 MG RECT SUPP PR PRN (02:38)
[2020-09-20] MEDS ORDERED: WITCH HAZEL/ GLYCERIN PAD TP PRN (02:38)
[2020-09-20] MEDS ORDERED: PROMETHAZINE 25 MG TAB PO PRN (02:38)
[2020-09-20] MEDS ORDERED: ACETAMINOPHEN 325 MG TAB PO PRN (02:38)
[2020-09-20] MEDS ORDERED: diphenhydrAMINE 25 MG CAP PO PRN (02:38)
[2020-09-20] MEDS ORDERED: MAGNESIUM HYDROXIDE (MOM) ORAL LIQD UDC PO PRN (02:38)
[2020-09-20] MEDS ORDERED: ONDANSETRON 4 MG/2 ML INJ IV PRN (02:38)
[2020-09-20] MEDS ORDERED: LANOLIN/ZINC/DIMETHICONE (LANSINOH) 7 GM TP PRN (02:38)
--- NOTE | 2020-09-20 02:38 | Procedure Note ---
OB Delivery Note - Delivery Date of Delivery: 09/20/20 Surgeon: DENIS ANDRES Estimated blood loss: 300cc - Vaginal Delivery presentation: vertex Delivery position: OA Delivery augmentation: pitocin Delivery monitor: external FHT, external uterine, internal uterine Route of delivery: Delivery placenta: spontaneous Delivery cord: 3 umbilical vessels Episiotomy: none Delivery laceration: 2nd degree Delivery repair: vicryl Anesthesia: local Delivery comments: The patient progressed to complete complete +1 and pushed to deliver a live-born male infant with Apgars of 8 and 9 weight 6 pounds 8 ounces. After delivery of the head the shoulders delivered without difficulty. The was immediately placed on the patient's abdomen. Cord clamping was delayed until pulsations . The cord was then clamped and cut. The placenta was delivered spontaneously intact with three-vessel cord. The patient sustained a second- degree midline laceration that was injected with lidocaine and repaired with 2-0 Vicryl in normal fashion. Estimated blood loss of 300 mL - Infant A at 1 minute: 8 at 5 minutes: 9 Infant Gender: Male (Weight 6 pounds 8 ounces)
[2020-09-20] MEDS: IBUPROFEN 600 MG TAB PO SCH ×3 (05:00→21:00)
[2020-09-20] MEDS: HYDROcodone/ACETAMINOPHEN 5-325 MG TAB PO PRN ×2 (08:03→17:53)
[2020-09-20 16:37] LABS: Hematocrit 26.5 % (30.3-42.9)
[2020-09-21] MEDS: IBUPROFEN 600 MG TAB PO SCH ×2 (03:00→04:35)
[2020-09-21] MEDS ORDERED: DIPHtheria,PERTUSSIS(ACELL),TETANUS VACCINE/PF 0.5 ML VIAL IM ONE (06:00)
--- NOTE | 2020-09-21 08:03 | Progress Note ---
Assessment and Plan A: PPD1 s/p Need for pain management Need for education Acute on chronic anemia d/t and blood loss Inadequate GBS prophylaxis P: Hydrocodone ordered for pain management Request for advanced manufacturing consultant Ferrous sulfate supplementation Routine PP care Discharge on PP Day 2 Subjective - Subjective Date of service: 09/21/20 Principal diagnosis: S/P Interval history: PPD1 s/p Patient reports: appetite normal, voiding normally, pain poorly controlled (cramping ), ambulating normally [place]: doing well, nursing well, bottle feeding Objective - Vital Signs Latest vital signs: Vital Signs Temp Pulse Resp BP BP Pulse Ox 09/21/20 04:35 18 09/21/20 00:30 98.6 F 77 18 112/78 09/20/20 21:26 98.0 F 81 18 111/77 98 09/20/20 16:55 97.4 F L 76 18 117/68 99 09/20/20 12:23 97.9 F 83 18 100/62 97 Intake and Output 09/20/20 09/20/20 09/21/20 15:59 23:59 07:59 Intake Total 300 Output Total 750 150 Balance -750 -150 300 Intake: Intake, Free Water 300 Output: Urine 750 150 Void 750 150 Other: Total, Output Amount 250 150 # Voids Void 1 1 1 - Exam Breasts: Present: normal Abdomen: Present: normal appearance, soft, tenderness. Absent: distention, guarding Uterus: Present: normal, firm, fundal height below umbilicus Extremities: Present: normal - Labs Labs: Abnormal lab results 09/20/20 Range/Units 16:20 Hgb 9.0 L (10.1-14.3) gm/dl Hct 26.5 L D (30.3-42.9) %
[2020-09-21] MEDS: HYDROcodone/ACETAMINOPHEN 5-325 MG TAB PO PRN (08:38)
--- NOTE | 2020-09-22 03:08 | Discharge Summary ---
Providers - Providers Date of Admission: 09/19/20 22:42 Date of discharge: 09/22/20 Attending physician: DENIS ANDRES 09/21/20 07:48 Consult to Cashier Receptionist [CONS] Routine Reason For Exam: Primary care physician: DENIS ANDRES Hospitalization Reason for admission: active labor, IUP at term Delivery: Episiotomy: none Laceration: 2nd degree Other procedures: none complications: none Discharge diagnosis: IUP at term delivered, Condition at discharge: Good Disposition: DC-01 TO HOME OR SELFCARE Plan - Discharge Medications Prescriptions: Ferrous Sulfate [Feosol 325 MG tab] 325 mg PO BID #60 tablet Ibuprofen [Motrin] 600 mg PO Q6H PRN #60 tablet PRN Reason: Pain - Provider Discharge Summary Activity: routine, no sex for 6 weeks, no heavy lifting 4 weeks, no strenuous exercise Diet: routine Instructions: routine Additional instructions: [] Smoking cessation referral if applicable(refer to patient education folder for contact #) [] Refer to [facility] Booklet Call your doctor immediately for: * Fever > 100.5 * Heavy vaginal bleeding ( >1 pad per hour) * Severe persistent headache * Shortness of breath * Reddened, hot, painful area to leg or breast * Drainage or odor from incision. * Keep incision clean and dry at all times and follow doctor's instructions regarding bathing/showering - Follow up plan Follow up: JULIANA FUENTES MD [Staff Physician] - 14 Days (Please call [facility] senior sales associate to schedule appointment.)
[2020-09-22] MEDS: HYDROcodone/ACETAMINOPHEN 5-325 MG TAB PO PRN (08:21)
[2020-09-22 13:59] VITALS: BP 126/77
== END 2020-09-22 14:15 | disposition home or self-care (01) | DRG 806 ==
LOC: APU 21:53 → TRG 21:53 → LD 22:42 → OB 09-20 04:10
PROVIDERS: ADMIT Obstetrics & Gynecology; ATTEND Obstetrics & Gynecology
PROC: 10E0XZZ Delivery of Products of Conception, External Approach (ICD-10-PCS; principal; 2020-09-20)
PROC: 0KQM0ZZ Repair Perineum Muscle, Open Approach (ICD-10-PCS; 2020-09-20)
PROC: 3E0234Z Introduction of Serum, Toxoid and Vaccine into Muscle, Percutaneous Approach (ICD-10-PCS; 2020-09-21)
DX: O34.219 Maternal care for unspecified type scar from previous cesarean delivery (principal); D62 Acute posthemorrhagic anemia; Z37.0 Single live birth; Z3A.38 38 weeks gestation of pregnancy; O70.1 Second degree perineal laceration during delivery; O90.81 Anemia of the puerperium; Z20.828 Contact with and (suspected) exposure to other viral communicable diseases; Z23 Encounter for immunization
CPT/HCPCS: 36415; 85014; 85018; 85027; 86592; 86850; 86900; 86901; G0378; J0290; J2590; J3010; J7120; U0003

== ENCOUNTER 2021-02-05 17:57 | Emergency (ER) | payer OTHER, MEDICAID ==
[2021-02-05 19:23] VITALS: BP 129/82
[2021-02-05 20:23] LABS: Basophils % (Auto) 0.4 % (0.0-1.8); Eosinophils % (Auto) 0.5 % (0.0-4.3); Hematocrit 34.9 % (30.3-42.9); Hemoglobin 11.9 gm/dl (10.1-14.3); Lymphocytes # (Auto) 1.8 K/mm3 (1.2-5.4); Mean Corpuscular HGB Conc 34 % (30-34); Mean Corpuscular Volume 87 fl (79-97); Monocytes # (Auto) 0.4 K/mm3 (0.0-0.8); Monocytes % (Auto) 6.9 % (0.0-7.3); Platelet Count 184 K/mm3 (140-440); Red Blood Count 4.01 M/mm3 (3.65-5.03); Red Cell Distribution Width 16.1 % (13.2-15.2)
[2021-02-05 20:34] LABS: Alanine Aminotransferase 18 units/L (7-56); Albumin 4.5 g/dL (3.9-5); Blood Urea Nitrogen 15 mg/dL (7-17); Calcium 9.2 mg/dL (8.4-10.2); Hemolysis Index 7
[2021-02-05 20:35] LABS: BUN/Creatinine Ratio 25
--- NOTE | 2021-02-05 20:50 | Emergency Department Report ---
<LUCIA LONG - Last Filed: 02/05/21 21:48> ED HPI - General Chief complaint: Urogenital-Female Stated complaint: VAG BLEED (6WKS PREG) Time Seen by Provider: 02/05/21 19:43 Source: patient Mode of arrival: Ambulatory Limitations: No Limitations - History of Present Illness Initial comments: Patient is a 25-year-old female presents emergency room with complaints of vaginal bleeding that began today. She states that she has had to wear a pad and has changed it approximately twice a day. She states that she also has lower abdominal cramping. Patient states that she took a positive test [id number] last week. She states that she has not had a menstrual cycle since having a vaginal delivery 4 months ago. She has not seen anybody for this . She denies any fever, nausea, vomiting, diarrhea, dysuria, abnormal vaginal discharge. No past medical history. No allergies medications. /P: 2/A: 0 - Related Data Previous Rx's Medication Instructions Recorded Last Taken Type Ferrous Sulfate [Feosol 325 MG tab] 325 mg PO BID #60 tablet 09/21/20 Unknown Rx Ibuprofen [Motrin] 600 mg PO Q6H PRN #60 tablet 09/21/20 Unknown Rx Allergies Allergy/AdvReac Type Severity Reaction Status Date / Time No Known Allergies Allergy Verified 10/11/19 02:20 ED Review of Systems Comment: All other systems reviewed and negative ED Past Medical Hx - Past Medical History Previous Medical History?: Yes Hx Hypertension: No Hx Congestive Heart Failure: No Hx Diabetes: No Hx Deep Vein Thrombosis: No Hx Renal Disease: No Hx Sickle Cell Disease: No Hx Seizures: No Hx Asthma: No Hx COPD: No Hx HIV: No Additional medical history: "liver probs" - Surgical History Past Surgical History?: No Additional Surgical History: - Social History Smoking Status: Never Smoker Substance Use Type: None - Medications Home Medications: Home Medications Medication Instructions Recorded Confirmed Last Taken Type Ferrous Sulfate [Feosol 325 MG tab] 325 mg PO BID #60 tablet 09/21/20 Unknown Rx Ibuprofen [Motrin] 600 mg PO Q6H PRN #60 tablet 09/21/20 Unknown Rx ED Physical Exam - General Limitations: No Limitations General appearance: alert, in no apparent distress - Head Head exam: Present: atraumatic, normocephalic - Eye Eye exam: Present: normal appearance - ENT ENT exam: Present: mucous membranes moist - Respiratory Respiratory exam: Present: normal lung sounds bilaterally. Absent: respiratory distress, wheezes, rales, rhonchi, stridor, chest wall tenderness, accessory muscle use, decreased breath sounds, prolonged expiratory - Cardiovascular Cardiovascular Exam: Present: regular rate, normal rhythm, normal heart sounds. Absent: systolic murmur, diastolic murmur, rubs, gallop - GI/Abdominal GI/Abdominal exam: Present: soft, normal bowel sounds. Absent: distended, tenderness, guarding, rebound, rigid - Neurological Exam Neurological exam: Present: alert, oriented X3 - Psychiatric Psychiatric exam: Present: normal affect, normal mood - Skin Skin exam: Present: warm, dry, intact ED Medical Decision Making - Lab Data Result diagrams: 02/05/21 20:01 02/05/21 20:01 Lab Results 02/05/21 02/05/21 02/05/21 Range/Units 20:01 20:01 20:01 WBC 6.4 (4.5-11.0) K/mm3 RBC 4.01 (3.65-5.03) M/mm3 Hgb 11.9 (10.1-14.3) gm/dl Hct 34.9 (30.3-42.9) % MCV 87 (79-97) fl MCH 30 (28-32) pg MCHC 34 (30-34) % RDW 16.1 H (13.2-15.2) % Plt Count 184 (140-440) K/mm3 Lymph % (Auto) 28.0 (13.4-35.0) % [place] % (Auto) 6.9 (0.0-7.3) % Eos % (Auto) 0.5 (0.0-4.3) % Baso % (Auto) 0.4 (0.0-1.8) % Lymph # (Auto) 1.8 (1.2-5.4) K/mm3 [place] # (Auto) 0.4 (0.0-0.8) K/mm3 Eos # (Auto) 0.0 (0.0-0.4) K/mm3 Baso # (Auto) 0.0 (0.0-0.1) K/mm3 Seg Neutrophils % 64.2 (40.0-70.0) % Seg Neutrophils # 4.1 (1.8-7.7) K/mm3 Sodium 140 (137-145) mmol/L Potassium 4.2 (3.6-5.0) mmol/L Chloride 105.4 (98-107) mmol/L Carbon Dioxide 26 (22-30) mmol/L Anion Gap 13 mmol/L BUN 15 (7-17) mg/dL Creatinine 0.6 (0.6-1.2) mg/dL Estimated GFR > 60 ml/min BUN/Creatinine Ratio 25 % Glucose 84 (65-100) mg/dL Calcium 9.2 (8.4-10.2) mg/dL Total Bilirubin 0.70 (0.1-1.2) mg/dL AST 18 (5-40) units/L ALT 18 (7-56) units/L Alkaline Phosphatase 65 (35-129) units/L Total Protein 6.8 (6.3-8.2) g/dL Albumin 4.5 (3.9-5) g/dL Albumin/Globulin Ratio 2.0 % HCG, Quant 7883 H (0-4) mIU/mL Urine Color (Yellow) Urine Turbidity (Clear) Urine pH (5.0-7.0) Ur Specific [place] (1.003-1.030) Urine Protein (Negative) mg/dL Urine Glucose (UA) (Negative) mg/dL Urine Ketones (Negative) mg/dL Urine Blood (Negative) Urine Nitrite (Negative) Urine Bilirubin (Negative) Urine Urobilinogen (<2.0) mg/dL Ur Leukocyte Esterase (Negative) Urine WBC (Auto) (0.0-6.0) /HPF Urine RBC (Auto) (0.0-6.0) /HPF U Epithel Cells (Auto) (0-13.0) /HPF Urine Mucus /HPF Blood Type 02/05/21 02/05/21 Range/Units 20:02 Unknown WBC (4.5-11.0) K/mm3 RBC (3.65-5.03) M/mm3 Hgb (10.1-14.3) gm/dl Hct (30.3-42.9) % MCV (79-97) fl MCH (28-32) pg MCHC (30-34) % RDW (13.2-15.2) % Plt Count (140-440) K/mm3 Lymph % (Auto) (13.4-35.0) % [place] % (Auto) (0.0-7.3) % Eos % (Auto) (0.0-4.3) % Baso % (Auto) (0.0-1.8) % Lymph # (Auto) (1.2-5.4) K/mm3 [place] # (Auto) (0.0-0.8) K/mm3 Eos # (Auto) (0.0-0.4) K/mm3 Baso # (Auto) (0.0-0.1) K/mm3 Seg Neutrophils % (40.0-70.0) % Seg Neutrophils # (1.8-7.7) K/mm3 Sodium (137-145) mmol/L Potassium (3.6-5.0) mmol/L Chloride (98-107) mmol/L Carbon Dioxide (22-30) mmol/L Anion Gap mmol/L BUN (7-17) mg/dL Creatinine (0.6-1.2) mg/dL Estimated GFR ml/min BUN/Creatinine Ratio % Glucose (65-100) mg/dL Calcium (8.4-10.2) mg/dL Total Bilirubin (0.1-1.2) mg/dL AST (5-40) units/L ALT (7-56) units/L Alkaline Phosphatase (35-129) units/L Total Protein (6.3-8.2) g/dL Albumin (3.9-5) g/dL Albumin/Globulin Ratio % HCG, Quant (0-4) mIU/mL Urine Color Yellow (Yellow) Urine Turbidity Slightly-cloudy (Clear) Urine pH 7.0 (5.0-7.0) Ur Specific [place] 1.023 (1.003-1.030) Urine Protein 30 mg/dl (Negative) mg/dL Urine Glucose (UA) Neg (Negative) mg/dL Urine Ketones Neg (Negative) mg/dL Urine Blood Lg (Negative) Urine Nitrite Neg (Negative) Urine Bilirubin Neg (Negative) Urine Urobilinogen 2.0 (<2.0) mg/dL Ur Leukocyte Esterase Neg (Negative) Urine WBC (Auto) 8.0 H (0.0-6.0) /HPF Urine RBC (Auto) > 182.0 (0.0-6.0) /HPF U Epithel Cells (Auto) 1.0 (0-13.0) /HPF Urine Mucus Few /HPF Blood Type AB POSITIVE - Medical Decision Making Patient is a 25-year-old female presents emergency room with complaints of vaginal bleeding that began today. She states that she has had to wear a pad and has changed it approximately twice a day. She states that she also has lower abdominal cramping. Patient states that she took a positive test [id number] last week. She states that she has not had a menstrual cycle since having a vaginal delivery 4 months ago. She has not seen anybody for this . She denies any fever, nausea, vomiting, diarrhea, dysuria, abnormal vaginal discharge. No past medical history. No allergies medications. /P: 2/A: 0. Vitals are normal. No abdominal tenderness on exam, no guarding, no rebound, no rigidity, normal bowel sounds, no peritoneal signs. Labs are normal. hCG quant is 7883. Patient's blood type is AB+. UA shows evidence of many red blood cells, UA not consistent with UTI. 10:00PM Patient signed out to Irene Agarwal PA-C pending ultrasound results and disposition ED Disposition Clinical Impression: Threatened miscarriage Disposition: DC- TO HOME OR SELFCARE Condition: Stable Instructions: Threatened Miscarriage, [id number] Additional Instructions: You can continue taking Tylenol as needed to help with pain. It is important that you follow-up ENFORCEMENT SAFETY OFFICER in 2 to 3 days for repeat quant and ultrasound. Recommend no sexual contact strenuous activity until follow-up with OB. Return to the ER if your symptoms worsens or changes in any way. Referrals: ALICIA MADRID MD [Primary Care Provider] - 3-5 Days Forms: Accompanied Note, Work/School Release Form(ED) <IRENE AGARWAL - Last Filed: 02/06/21 00:38> ED Review of Systems ROS: Stated complaint: VAG BLEED (6WKS PREG) Other details as noted in HPI ED Course Vital Signs 02/05/21 19:21 Temperature 98.3 F Pulse Rate 71 Respiratory 16 Rate Blood Pressure 129/82 O2 Sat by Pulse 99 Oximetry ED Medical Decision Making - Lab Data Result diagrams: 02/05/21 20:01 02/05/21 20:01 - Radiology Data Radiology results: report reviewed Patient: JESSIE HARRIS MR#: [id number] : 1995 Acct:[id number] Age/Sex: 25 / F ADM Date: 02/05/21 Loc: ED Attending Dr: Ordering Physician: RAFAEL TO Date of Service: 02/05/21 Procedure(s): US OB <= 14 weeks fetus Accession Number(s): [id number] cc: RAFAEL TO US OB <= 14 weeks fetus INDICATION / CLINICAL INFORMATION: , cramping, bleeding. COMPARISON: None available. FINDINGS: Single intrauterine . [place]-rump length measures 4 mm, corresponding to a gestational age of 6 weeks 1 day. cardiac activity could not be verified. Cervical length measures 3.1 cm. Left ovary is normal. Right ovary cannot be identified. No free fluid. IMPRESSION: 1. Single intrauterine gestational sac containing small pole, estimated gestational age of 6 weeks 1 day. 2. cardiac activity could not be demonstrated at this very early stage. Suggest follow-up exam in 2-3 days. Signer Name: Adi Schroeder MD Signed: 02/05/2021 11:05 PM Workstation Name: [id number] Transcribed By: TM Dictated By: Adi Schroeder MD Electronically Authenticated By: Adi Schroeder MD Signed Date/Time: 02/05/212304 DD/ 00 TD/TT: - Medical Decision Making 2199: Case was turned over to me from Lucia Long PA-C; Case and labs reviewed. US pending., 2300: Pt reports that she had a baby about 4-5 mths ago. She took a home preg test about 1 week ago and it was positive. Her vag bleeding started today. She states it was light when it first started but feels like its getting heavier since she has been here. She states she has changed 4 pads today. She has not changed a pad since she has been in ED. She reports abdominal cramping. She last took tylenol before coming to ED . She is G3, P2 AB0. Currently she does not appear to be in any acute distress. She is not toxic or ill-appearing. Abdominal exam shows soft nontender abdomen. Labs reviewed, CBC, CMP unremarkable. UA negative UTI. She is Rh+ and therefore no indication for RhoGam at this time. Her quant HCG is 7883. Will give patient a dose of Tylenol for her cramps, while waiting for ultrasound results. 2345: Ultrasound reviewed, 1. Single intrauterine gestational sac containing small pole, estimated gestational age of 6 weeks 1 day. 2. cardiac activity could not be demonstrated at this very early stage. Suggest follow-up exam in 2-3 days. Discussed ultrasound results as well as lab results with patient. She has an ENFORCEMENT SAFETY OFFICER, Dr. Silva, recommend she follows up with Dr. Silva in 2 to 3 days for Repeat quant hCG and ultrasound. Patient expressed understanding of instructions and agreed with plan. Patient was stable at time of d/c. Critical care attestation.: If time is entered above; I have spent that time in minutes in the direct care of this critically ill patient, excluding procedure time. ED Disposition Is pt being admited?: No Does the pt Need Aspirin: No Time of Disposition: 23:39
[2021-02-05 21:39] LABS: Bilirubin,Urine NEG (Negative); Blood,Urine LG (Negative); Color,Urine Yellow (Yellow); Mucus,Urine FEW /HPF
[2021-02-05 21:40] LABS: RBC,Urine > 182.0 /HPF (0.0-6.0)
--- NOTE | 2021-02-05 23:10 | Ultrasound Report ---
US OB <= 14 weeks fetus INDICATION / CLINICAL INFORMATION: , cramping, bleeding. COMPARISON: None available. FINDINGS: Single intrauterine . [place]-rump length measures 4 mm, corresponding to a gestational age of 6 weeks 1 day. cardiac activity could not be verified. Cervical length measures 3.1 cm. Left ovary is normal. Right ovary cannot be identified. No free flui d. IMPRESSION: 1. Single intrauterine gestational sac containing small pole, estimated gestational age of 6 we eks 1 day. 2. cardiac activity could not be demonstrated at this very early stage. Suggest follow-up exam in 2-3 days. Signer Name: Adi Schroeder MD Signed: 02/05/2021 11:05 PM Workstation Name: [id number]
== END 2021-02-05 23:45 | disposition home or self-care (01) ==
LOC: ED 17:57
DX: O20.0 Threatened abortion (principal); Z79.1 Long term (current) use of non-steroidal anti-inflammatories (NSAID); Z79.899 Other long term (current) drug therapy
CPT/HCPCS: 36415; 76801; 80053; 81001; 84702; 85025; 86900; 86901; 99283

== ENCOUNTER 2021-02-06 12:00 | Emergency (ER) | payer OTHER, MEDICAID | END 2021-02-06 14:38 | disposition left against medical advice (07) | LOC: ED 12:00 | DX: O03.9 Complete or unspecified spontaneous abortion without complication (principal); Z53.21 Procedure and treatment not carried out due to patient leaving prior to being seen by health care provider; Z3A.00 Weeks of gestation of pregnancy not specified ==

== ENCOUNTER 2021-12-13 00:48 | Emergency (ER) | payer MEDICAID, OTHER ==
[2021-12-13] MEDS ORDERED: SODIUM CHLORIDE 0.9% 1000 ML 1,000 ML IV ONE (01:27)
[2021-12-13] MEDS ORDERED: NalbUPHINE 10 MG/1 ML INJ IV ONE (01:32)
[2021-12-13 01:58] LABS: Basophils % (Auto) 0.3 % (0.0-1.8); Eosinophils % (Auto) 0.3 % (0.0-4.3); Hematocrit 32.7 % (30.3-42.9); Lymphocytes # (Auto) 1.6 K/mm3 (1.2-5.4); Lymphocytes % (Auto) 17.9 % (13.4-35.0); Mean Corpuscular HGB Conc 34 % (30-34); Mean Corpuscular Volume 87 fl (79-97); Monocytes # (Auto) 0.6 K/mm3 (0.0-0.8); Monocytes % (Auto) 7.3 % (0.0-7.3); Platelet Count 173 K/mm3 (140-440); Red Blood Count 3.77 M/mm3 (3.65-5.03)
[2021-12-13] MEDS ORDERED: KETOROLAC 30 MG/1 ML INJ IV ONE (02:42)
[2021-12-13] MEDS ORDERED: KETOROLAC 30 MG/1 ML INJ ONE (02:43)
[2021-12-13 02:50] LABS: Alanine Aminotransferase 18 units/L (7-56); Albumin 3.8 g/dL (3.9-5); Blood Urea Nitrogen 13 mg/dL (7-17); Calcium 8.7 mg/dL (8.4-10.2); Hemolysis Index 0
[2021-12-13 02:51] LABS: BUN/Creatinine Ratio 19
[2021-12-13] MEDS ORDERED: HYDROmorphone 1 MG/1 ML INJ IV ONE (03:32)
--- NOTE | 2021-12-13 03:41 | Emergency Department Report ---
ED HPI - General Chief complaint: Vaginal Bleeding Stated complaint: BLEEDING/ABDOMINAL PAIN (14 WKS ) Time Seen by Provider: 12/13/21 01:27 Source: patient Mode of arrival: Ambulatory Limitations: Language Barrier - History of Present Illness Initial comments: Patient is a 26-year-old F [place] female who presents with lower abdominal pain and bleeding. Some clots are passing as well. Patient is approximately 14 weeks . Pain estimated 8 out of 10 in severity. Denies fevers chills dysuria. MD Complaint: abdominal pain, "contractions" Location: pelvis, abdomen Radiation: suprapubic Severity scale (0 -10): 8 Consistency: constant Improves with: none Worsens with: none Associated symptoms: vaginal bleeding, abdominal pain. denies: nausea/vomiting, vaginal discharge, dysuria, headache, vision changes, malaise, dysparuenia, rash, seizure, shortness of breath, syncope, weakness Vaginal bleeding: clots :: Yes - Related Data Previous Rx's Medication Instructions Recorded Last Taken Type Ferrous Sulfate [Feosol 325 MG tab] 325 mg PO BID #60 tablet 09/21/20 Unknown Rx Ibuprofen [Motrin] 600 mg PO Q6H PRN #60 tablet 09/21/20 Unknown Rx Ibuprofen [Motrin 800 MG tab] 800 mg PO Q8HR PRN #20 tablet 12/13/21 Unknown Rx Methylergonovine [Methergine] 0.2 mg PO Q8HR #9 tablet 12/13/21 Unknown Rx Allergies Allergy/AdvReac Type Severity Reaction Status Date / Time No Known Allergies Allergy Verified 10/11/19 02:20 ED Review of Systems ROS: Stated complaint: BLEEDING/ABDOMINAL PAIN (14 WKS ) Other details as noted in HPI Comment: All other systems reviewed and negative ED Past Medical Hx - Past Medical History Previous Medical History?: Yes Hx Hypertension: No Hx Congestive Heart Failure: No Hx Diabetes: No Hx Deep Vein Thrombosis: No Hx Renal Disease: No Hx Sickle Cell Disease: No Hx Seizures: No Hx Asthma: No Hx COPD: No Hx HIV: No Additional medical history: "liver probs" - Surgical History Additional Surgical History: - Social History Smoking Status: Never Smoker Substance Use Type: Alcohol - Medications Home Medications: Home Medications Medication Instructions Recorded Confirmed Last Taken Type Ferrous Sulfate [Feosol 325 MG tab] 325 mg PO BID #60 tablet 09/21/20 Unknown Rx Ibuprofen [Motrin] 600 mg PO Q6H PRN #60 tablet 09/21/20 Unknown Rx Ibuprofen [Motrin 800 MG tab] 800 mg PO Q8HR PRN #20 tablet 12/13/21 Unknown Rx Methylergonovine [Methergine] 0.2 mg PO Q8HR #9 tablet 12/13/21 Unknown Rx ED Physical Exam - General Limitations: Language Barrier General appearance: alert, in distress - Head Head exam: Present: atraumatic, normocephalic - Eye Eye exam: Present: normal appearance - ENT ENT exam: Present: mucous membranes moist - Neck Neck exam: Present: normal inspection - Respiratory Respiratory exam: Present: normal lung sounds bilaterally. Absent: respiratory distress, wheezes, rales, rhonchi - Cardiovascular Cardiovascular Exam: Present: normal rhythm, tachycardia. Absent: systolic murmur, diastolic murmur, rubs, gallop - GI/Abdominal GI/Abdominal exam: Present: soft, normal bowel sounds. Absent: distended, tenderness, guarding, rebound - External exam: Present: normal external exam Speculum exam: Present: vaginal bleeding Bi-manual exam: Present: other (Bimanual exam performed. No solid tissue in the vaginal vault. Cervical os seems to have a large clot at the opening.) - Extremities Exam Extremities exam: Present: normal inspection - Back Exam Back exam: Present: normal inspection - Neurological Exam Neurological exam: Present: alert, oriented X3 - Psychiatric Psychiatric exam: Present: normal affect, normal mood - Skin Skin exam: Present: warm, dry, intact, normal color. Absent: rash ED Course Vital Signs 12/13/21 12/13/21 12/13/21 01:22 02:42 02:46 Temperature 98.0 F Pulse Rate 122 H 98 H 94 H Respiratory 16 17 16 Rate Blood Pressure 160/99 127/82 127/82 O2 Sat by Pulse 98 100 100 Oximetry 12/13/21 02:57 Temperature Pulse Rate Respiratory Rate Blood Pressure O2 Sat by Pulse 98 Oximetry - Reevaluation(s) Reevaluation #1: 12/13/21 04:17 Patient initially given a dose of Nubain which did not help the patient's pain. Patient states the pain is very intense and 9 out of 10. Had to give the patient some Dilaudid to get her to be able to tolerate ultrasound. After ultrasound was performed while speaking to the OB hospitalist fetus did pass through the vaginal canal. Is still appears attached to the umbilical cord. states he will come to see the patient in person. Reevaluation #2: 12/13/21 05:41 OB onsite. Was able to completely remove the fetus. Placenta still present. I suggested given the patient a dose of Hemabate 250 mcg IM. We will watch the patient for the next hour and repeat if the placenta does not come out. After the second dose the patient can be discharged on methergine ED Medical Decision Making - Lab Data Result diagrams: 12/13/21 01:35 12/13/21 01:35 Lab Results 12/13/21 12/13/21 12/13/21 Range/Units 01:35 01:35 01:35 WBC 8.7 (4.5-11.0) K/mm3 RBC 3.77 (3.65-5.03) M/mm3 Hgb 11.0 (10.1-14.3) gm/dl Hct 32.7 (30.3-42.9) % MCV 87 (79-97) fl MCH 29 (28-32) pg MCHC 34 (30-34) % RDW 15.0 (13.2-15.2) % Plt Count 173 (140-440) K/mm3 Lymph % (Auto) 17.9 (13.4-35.0) % [place] % (Auto) 7.3 (0.0-7.3) % Eos % (Auto) 0.3 (0.0-4.3) % Baso % (Auto) 0.3 (0.0-1.8) % Lymph # (Auto) 1.6 (1.2-5.4) K/mm3 [place] # (Auto) 0.6 (0.0-0.8) K/mm3 Eos # (Auto) 0.0 (0.0-0.4) K/mm3 Baso # (Auto) 0.0 (0.0-0.1) K/mm3 Seg Neutrophils % 74.2 H (40.0-70.0) % Seg Neutrophils # 6.4 (1.8-7.7) K/mm3 Sodium 136 L (137-145) mmol/L Potassium 3.8 (3.6-5.0) mmol/L Chloride 105.3 (98-107) mmol/L Carbon Dioxide 18 L (22-30) mmol/L Anion Gap 17 mmol/L BUN 13 (7-17) mg/dL Creatinine 0.7 (0.6-1.2) mg/dL Estimated GFR > 60 ml/min BUN/Creatinine Ratio 19 % Glucose 99 (65-100) mg/dL Calcium 8.7 (8.4-10.2) mg/dL Total Bilirubin 0.50 (0.1-1.2) mg/dL AST 19 (5-40) units/L ALT 18 (7-56) units/L Alkaline Phosphatase 76 (35-129) units/L Total Protein 7.0 (6.3-8.2) g/dL Albumin 3.8 L (3.9-5) g/dL Albumin/Globulin Ratio 1.2 % HCG, Quant 67223 H (0-4) mIU/mL Ordering Physician: RAFAEL ANTHONY Date of Service: 12/13/21 Procedure(s): US OB <= 14 weeks fetus Accession Number(s): [id number] cc: RAFAEL ANTHONY ULTRASOUND OBSTETRIC , 1ST TRIMESTER INDICATION / CLINICAL INFORMATION: Vaginal bleeding pain. Clinical Gestational Age (GA) in weeks, days: Unclear TECHNIQUE: Transabdominal. COMPARISON: None available. FINDINGS: UTERUS: The uterus is enlarged and heterogeneous in appearance. No gestational sac is present. However, there are ill-defined structures in the lower uterine segment and cervix. No cardiac activity can be identified. There is no surrounding amniotic fluid. Placenta is located within the fundus. ADNEXA: Left ovary is visualized and has a normal appearance. The right ovary was not identified. FREE FLUID: None. ADDITIONAL FINDINGS: None. IMPRESSION: 1. Intrauterine demise with spontaneous in progress. parts are identified in the lower uterine segment and within the cervix. No cardiac activity is identified. Signer Name: Kadi Vickers MD Signed: 12/13/2021 4:34 AM Workstation Name: [id number] Critical care attestation.: If time is entered above; I have spent that time in minutes in the direct care of this critically ill patient, excluding procedure time. ED Disposition Clinical Impression: Spontaneous Disposition: HOME / SELF CARE / HOMELESS Is pt being admited?: No Does the pt Need Aspirin: No Condition: Stable Instructions: Miscarriage, Managing Loss Referrals: GISEL LUBIN MD [Staff Physician] - 3-5 Days Time of Disposition: 07:00
--- NOTE | 2021-12-13 04:39 | Ultrasound Report ---
ULTRASOUND OBSTETRIC , 1ST TRIMESTER INDICATION / CLINICAL INFORMATION: Vaginal bleeding pain. Clinical Gestational Age (GA) in weeks, days: Unclear TECHNIQUE: Transabdominal. COMPARISON: None available. FINDINGS: UTERUS: The uterus is enlarged and heterogeneous in appearance. No gestational sac is present. Howeve r, there are ill-defined structures in the lower uterine segment and cervix. No cardiac a ctivity can be identified. There is no surrounding amniotic fluid. Placenta is located within the fun dus. ADNEXA: Left ovary is visualized and has a normal appearance. The right ovary was not identified. FREE FLUID: None. ADDITIONAL FINDINGS: None. IMPRESSION: 1. Intrauterine demise with spontaneous in progress. parts are identified in the lower uterine segment and within the cervix. No cardiac activity is identified. Signer Name: Kadi Vickers MD Signed: 12/13/2021 4:34 AM Workstation Name: [id number]
[2021-12-13] MEDS ORDERED: CARBOPROST TROMETHAMINE 250 MCG/1 ML INJ IM ONE (05:39)
--- NOTE | 2021-12-13 07:27 | Emergency Department Report ---
Blank Doc - Documentation Documentation: I was asked to order a dose of Hemabate. Based on review of the records, this was the plan documented by the prior physician, Dr. Umanzor. A second dose of Hemabate was ordered. The patient was discharged as previously written.
[2021-12-13] MEDS ORDERED: CARBOPROST TROMETHAMINE 250 MCG/1 ML INJ IM NR (08:00)
[2021-12-13] MEDS ORDERED: LACTATED RINGERS 1,000 ML IV ONE (08:38)
[2021-12-13 10:23] VITALS: BP 109/75
== END 2021-12-13 10:35 | disposition home or self-care (01) ==
LOC: ED 00:48
DX: O02.1 Missed abortion (principal); Z3A.14 14 weeks gestation of pregnancy; Z79.899 Other long term (current) drug therapy; Z98.890 Other specified postprocedural states
CPT/HCPCS: 36415; 76801; 80053; 84702; 85025; 88305; 96361; 96372; 96374; 96375; 99284; J1170; J1885; J2300; J3490; J7120